=== PATIENT | female | born 2005 | race Caucasian/White ===

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

== ENCOUNTER 2024-09-15 22:34 | Emergency (ER) | payer MEDICAID ==
[~2024-09-15] VITALS: Ht 157.5 cm; Wt 65.8 kg
[~2024-09-15 22:34] MED LIST: BENZ-13 PO
[2024-09-15 23:28] VITALS: BP 129/80; TEMP 98.8; O2SAT 99
[2024-09-16 00:02] LABS: APPEARANCE,URINE CLEAR (CLEAR); BILIRUBIN,URINE NEGATIVE (NEGATIVE); BLOOD, URINE NEGATIVE Ery/uL (NEGATIVE); COLOR,URINE YELLOW (YELLOW); KETONES,URINE NEGATIVE (NEGATIVE); LEUKOCYTE ESTERASE ,URINE NEGATIVE (NEGATIVE); NITRITE, URINE NEGATIVE (NEGATIVE); PROTEIN,URINE NEGATIVE (NEGATIVE); UGLUCOSE NEGATIVE (NEGATIVE); UROBILINOGEN,URINE 0.2 EU/dL (0.2)
[2024-09-16 00:03] LABS: PREGNANCY TEST URINE QUAL NEGATIVE (NEGATIVE)
== END 2024-09-16 01:41 | disposition home or self-care (01) ==
LOC: ER 22:43
DX: R35.0 Frequency of micturition (principal); R10.2 Pelvic and perineal pain; Z79.899 Other long term (current) drug therapy
CPT/HCPCS: 82962-TC; 84703-TC; 87086-TC